=== PATIENT | male | born 1990 | race Caucasian/White ===

== ENCOUNTER → 2025-06-18 07:45 | Outpatient (REF) | payer OTHER, SELFPAY | LOC: DHSLP 07:45 | PROVIDERS: ATTENDING PHYSICIAN Internal Medicine; FAMILY PHYSICIAN Family Medicine | DX: G47.30 Sleep apnea, unspecified (principal); R06.83 Snoring | CPT/HCPCS: 95800 ==

== ENCOUNTER → 2025-08-07 08:15 | Outpatient (REF) | payer OTHER, SELFPAY | LOC: DHSLP 08:15 | PROVIDERS: ATTENDING PHYSICIAN Internal Medicine; FAMILY PHYSICIAN Family Medicine | DX: G47.33 Obstructive sleep apnea (adult) (pediatric) (principal) | CPT/HCPCS: 95810 ==